=== PATIENT | female | born 1985 | race Caucasian/White ===

== ENCOUNTER 2018-11-27 04:58 | Inpatient (IN) ==
[2018-11-27] MEDS ORDERED: ceFAZolin SODIUM/DEXTROSE,ISO 2 GM/50 ML BAG IV ONE ×2 (05:01→07:00)
[2018-11-27] MEDS ORDERED: OXYTOCIN 20 UNITS in RINGER'S SOLUTION,LACTATED 1,000 ML IV ONE (05:01)
[2018-11-27] MEDS ORDERED: DEXTROSE 5%-LACTATED RINGERS 1,000 ML IV PRN (05:01)
[2018-11-27] MEDS: RINGER'S SOLUTION,LACTATED 1,000 ML IV PRN ×3 (05:40→09:57)
[2018-11-27] MEDS ORDERED: FLU VACC QS2019-20(6MOS UP)/PF 60 MCG/0.5 ML SYRINGE IM ONE (05:42)
--- NOTE | 2018-11-27 07:18 | ANES ---
Anesthesia Pre Procedure Eval HOME MEDICATIONS vitamin,calcium,ksozekdp-vfig-gpxcr acid tablet 1 tab PO DAILY 06/05/18 [Last Taken Unknown] Lactobac.acidophilus-Bifido.animalis 1.5 billion cell chewable tablet 2 tab PO DAILY tab 07/03/18 [Last Taken Unknown] ferrous sulfate 325 mg (65 mg iron) tablet 325 mg PO DAILY #30 tab 08/28/18 [ Last Taken Unknown] calcium carbonate 200 mg calcium (500 mg) chewable tablet 400 mg PO DAILY PRN tab 11/05/18 [Last Taken Unknown] Allergies/Adverse Reactions: Allergies Allergy/AdvReac Type Severity Reaction Status Date / Time No Known Allergies Allergy Verified 11/22/18 15:54 - Planned Procedure Planned Procedure: Repeat w/ poss abdominal scar revision Medication List Reviewed:: Yes Allergies Verified: Yes Medical History (Updated 08/28/18 @ 09:03 by Erik Trevino RN) Anemia Onset Date: 08/27/18 w/ , spontaneous Onset Date: ~06/2013 D&C Fibrocystic breast Onset Date: 12/2016 Right breast Surgical History (Updated 06/05/18 @ 10:17 by Trish Reese RN) H/O dilation and curettage Onset Date: 2013 SAB Previous section Onset Date: 2005 2005- distress, 2009- rpt Family History (Updated 06/05/18 @ 10:18 by Trish Reese RN) Mother Alive and well Father Asthma - Family Anesthesia History Family History:: no untoward family reactions to anesthesia - Airway/Neck/Teeth Within Normal Limits:: Yes Teeth Condition: intact Neck Exam: full range of motion Mallampatti Score: 1 Thyromental (T-M) distance: > 6 cm Mandibulo Hyoid distance: > 3 cm - Respiratory Respiratory Physical: lungs clear Smoking Status: Never smoker Sleep Apnea currently treated: No Sleep Apnea by current assessment: No - Cardiovascular Tolerate Activity: Good Heart Sounds: S1 & S2, Regular - Anesthesia Assessment and Plan ASA Class: PS, II Anesthesia Type Plan: Spinal - bilat tap block Planned difficult intubation/equipment available: No
[2018-11-27 07:26] LABS: Cocaine Ur Negative (NEGATIVE); Urine Barbiturate Negative (NEGATIVE); Urine Benzodiazepines Negative (NEGATIVE); Urine Opiates Negative (NEGATIVE); Urine PCP Negative (NEGATIVE); Urine THC Negative (NEGATIVE)
--- NOTE | 2018-11-27 10:50 | OR ---
Operative Report - Dictated Report Narrative: Indication: 33-year-old 4 para 2011 at 39-3/7 weeks presents for repeat low transverse section and bilateral salpingectomy for sterilization. status: Planned Pre Operative Diagnosis: 39-3/7-week intrauterine . Prior section x2. Desires permanent sterilization via bilateral salpingectomy. Post Operative Diagnosis: Same. Procedure: Repeat low transverse section. Bilateral salpingectomy. Abdominal scar revision -16cm Surgeon: Alize Stringer DO Blasting Helper: OR Staff Anesthesia: Spinal, TAP block Estimated Blood Loss: 300 mL Urine Output: 150 mL clear urine Fluids Replacement: 2200 mL of crystalloid Drains: Burton to gravity Surgical Complications: None Specimens: Placenta to freezer Findings: Male born at 0909 on 11/27/2017 with Apgars 7 and 7, weighing 4063 g in cephalic presentation. Fetus was born vigorously crying, covered in large amount of vernix, terminal meconium. Normal uterus, tubes, ovaries Technique: The patient was taken to the operating room and placed in dorsal supine position with a left lateral tilt. After adequate spinal anesthesia, burton catheter inserted, SCDs placed, and 2 g of Ancef given preoperatively, the previous scar was excised in an elliptical fashion and the abdominal cavity was entered using sharp and blunt dissection. A transverse incision was made in the lower uterine segment and extended laterally and upwardly with digital traction. Clear fluid was noted upon amniotomy. The infant was delivered easily. The cord was clamped and cut and infant was handed off to awaiting cocoa butter filter operator. The placenta was allowed to deliver spontaneously. The uterus was cleared of clot and debris. Uterine incision was closed with 0 Vicryl using a running stitch. A second imbricating layer was placed. Excellent hemostasis was noted. The right fallopian tube was identified and followed out to the fimbriated end. The mesosalpinx was coagulated with the Kleppinger's and transected with Metzenbaum scissors. The tube was transected 2 cm from the cornual region and removed in total and sent to pathology. The exact same was done on the patient's left side. The peritoneum was closed with a running 3-0 Monocryl. The same suture was used to approximate the rectus and pyramidalis muscles. The fascia was closed with a running 0 Vicryl. The subcutaneous layer was closed with a running 3-0 Monocryl. The same suture was used to approximate the subdermal layer. The skin was closed with a running 4-0 Monocryl and Dermabond. Sponge, lap, needle, and instrument count were correct x 2. Disposition: To post anesthesia care unit in good condition
[2018-11-27] MEDS ORDERED: SIMETHICONE 80 MG TAB.CHEW PO PRN (10:52)
[2018-11-27] MEDS ORDERED: CALCIUM CARBONATE 500 MG TAB.CHEW PO PRN (10:52)
[2018-11-27] MEDS ORDERED: ONDANSETRON HCL/PF 2 MG/ML VIAL IV PRN (10:52)
[2018-11-27] MEDS ORDERED: SENNOSIDES 8.6 MG TABLET PO PRN (10:52)
[2018-11-27] MEDS ORDERED: BISACODYL 10 MG SUPP.RECT RC PRN (10:52)
[2018-11-27] MEDS ORDERED: IBUPROFEN 800 MG TABLET PO PRN (10:52)
--- NOTE | 2018-11-27 11:09 | ANES ---
Post Anesthesia Discharge - Transfer of Care Transfer of Care handoff given to nurse: Yes - Discharge from PACU Discharge from PACU when meets criteria: Yes
[2018-11-27] MEDS: IBUPROFEN 800 MG TABLET PO PRN ×3 (11:18→23:41)
[2018-11-27] MEDS: oxyCODONE HCL/ACETAMINOPHEN 1 TAB TABLET PO PRN ×4 (11:18→23:40)
--- NOTE | 2018-11-27 14:49 | ANES ---
Post Anesthesia Assessment - Vital Signs Vitals: Last Vital Signs Temp 36.8 C 11/27/18 11:06 Pulse 99 11/27/18 13:30 Resp 18 11/27/18 13:30 BP 107/58 11/27/18 13:30 Pulse Ox 99 11/27/18 13:30 Airway Patency: Normal - Mental Status Level Of Consciousness: Awake - Pain Level Pain Score: 5 - N/V Assessment Nausea/Vomiting Presence: None Dehydration:: No
[2018-11-27] MEDS: DOCUSATE SODIUM 100 MG CAPSULE PO SCH (20:22)
[2018-11-27] MEDS: ENOXAPARIN SODIUM 40 MG/0.4 ML SYRG SC SCH (20:23)
[2018-11-28] MEDS: oxyCODONE HCL/ACETAMINOPHEN 1 TAB TABLET PO PRN ×4 (04:08→22:46)
[2018-11-28] MEDS ORDERED: FLU VACC QS2019-20(6MOS UP)/PF 60 MCG/0.5 ML SYRINGE IM ONE (08:15)
[2018-11-28] MEDS: FERROUS SULFATE 325 MG TABLET PO SCH (08:20)
[2018-11-28] MEDS: PRENATAL VITS96/IRON FUM/FOLIC 1 TAB TABLET PO SCH (08:20)
[2018-11-28] MEDS: CHILDREN S PROBIOTIC PO SCH (08:20)
[2018-11-28] MEDS: IBUPROFEN 800 MG TABLET PO PRN ×3 (08:20→22:47)
[2018-11-28] MEDS: DOCUSATE SODIUM 100 MG CAPSULE PO SCH ×2 (08:20→21:02)
[2018-11-28] MEDS: ENOXAPARIN SODIUM 40 MG/0.4 ML SYRG SC SCH (21:02)
[2018-11-29] MEDS: IBUPROFEN 800 MG TABLET PO PRN (05:24)
[2018-11-29 07:51] VITALS: BP 109/71
[2018-11-29] MEDS: PRENATAL VITS96/IRON FUM/FOLIC 1 TAB TABLET PO SCH (09:12)
[2018-11-29] MEDS: DOCUSATE SODIUM 100 MG CAPSULE PO SCH (09:12)
[2018-11-29] MEDS: FERROUS SULFATE 325 MG TABLET PO SCH (09:12)
[2018-11-29] MEDS: oxyCODONE HCL/ACETAMINOPHEN 1 TAB TABLET PO PRN (09:12)
[2018-11-29] MEDS: CHILDREN S PROBIOTIC PO SCH (09:12)
--- NOTE | 2018-11-29 11:26 | PN ---
Subjective - Date and Time Seen Date: 11/28/18 Time: 07:15 Objective - Vitals Vitals: Last Vital Signs Temp 36.5 C 11/29/18 07:39 Pulse 83 11/29/18 07:39 Resp 18 11/29/18 07:39 BP 109/71 11/29/18 07:39 Pulse Ox 100 11/29/18 07:39 Patient denies complaints. Tolerating regular diet. Ambulating without difficulty. Pain well controlled. Lochia wnl. Abdomen - soft, appropriately tender Incision -clean, dry, intact uterus - firm, at umbilicus -1 no calf tenderness Impression: Post op day #1 s/p repeat section. Bilateral salpingectomy. Abdominal scar revision. Plan: Continue routine post-operative/ care. We will plan on early discharge tomorrow since baby is at [facility] for slow transitioning. Cauti Physician Documentation - Urinary Catheter Management Urethral ([place]) Date of Insertion: 11/27/18 Time of Insertion: 08:45
--- NOTE | 2018-11-29 11:27 | PN ---
Subjective - Date and Time Seen Date: 11/29/18 Time: 08:55 Objective - Vitals Vitals: Last Vital Signs Temp 36.5 C 11/29/18 07:39 Pulse 83 11/29/18 07:39 Resp 18 11/29/18 07:39 BP 109/71 11/29/18 07:39 Pulse Ox 100 11/29/18 07:39 [Patient denies complaints. Ambulating well. Tolerating regular diet. Pain well controlled.] Lochia wnl. Abdomen - soft, appropriately tender Incision - [clean, dry, intact] Uterus - firm, at umbilicus -[2] No calf tenderness Impression: Post op day #2 s/p repeat section. Abdominal scar revision. Bilateral salpingectomy. Plan: Routine discharge instructions given. Cauti Physician Documentation - Urinary Catheter Management Urethral ([place]) Date of Insertion: 11/27/18 Time of Insertion: 08:45
--- NOTE | 2018-12-03 17:33 | PN ---
Progess Note - Interim Date: 12/03/18 Time: 17:33 History for MU History for MU Definition: * The number of deliveries resulting in a live the patient experienced prior to current hospitalization * The previous delivery of live twins or any live multiple gestation is considered one live event. *If primagravida or nulliparous is documented select zero for the number of previous live births. Live Events: Live Events: 2
--- NOTE | 2018-12-03 17:43 | PN ---
Progess Note - Interim Date: 12/03/18 Time: 17:40 Narrative: 12/03/18 17:40 Blue pre-op note was signed prior to surgery on patient on 11/23/18. No changes in patient's condition have changed since H&P except for patient began having regular painful contractions upon awakening the morning of surgery.
== END 2018-11-29 09:40 | disposition home or self-care (01) | DRG 785 ==
LOC: OB 04:58
PROVIDERS: ADMIT Obstetrics & Gynecology; ATTEND Obstetrics & Gynecology
CPT/HCPCS: 59025; 80307; 88302; 90686